=== PATIENT | male | born 1955 | race Caucasian/White ===

== ENCOUNTER → 2017-03-28 | Outpatient (CLI) | payer MEDICARE, OTHER | LOC: CT 13:00 | DX: F17.210 Nicotine dependence, cigarettes, uncomplicated (principal) | CPT/HCPCS: G0297 ==

== ENCOUNTER → 2020-10-13 | Outpatient (CLI) | payer MEDICARE, OTHER ==
[~2020-10-13] MED LIST: ASPIRIN EC325 MG PO; COMBIVENT0.074 GM/I INH; COZAAR25 MG PO; CYCLOBENZAPRINE5 MG PO; DILTIAZEM 24HR240 MG PO; DIOVAN80 MG PO; FLEXERIL 10 MG10 MG PO; HYDROCODON-ACE1 EAC6 PO; K-DUR TAB 20 M20 MEQ PO; LASIX20 MG PO; LEVEMIR100 UNIT/1 SC; LIPITOR80 MG PO; METFORMIN HCL1000 MG PO; METOPROLOL TART25 MG PO; MOBIC15 MG PO; NASONEX SPRAY 117 GM; NEURONTIN 300300 MG PO; NICOTINE PATCH1 EAC1 TP; NITROSTAT 0.40.4 MG SL; NOVOLOG 10100 UNITS1 SC; OZEMPIC0.25 MG/0. SC; PAXIL40 MG PO; PREDNISONE20 MG PO; PRILOSEC OTC20 MG PO; SINGULAIR10 MG PO; SYMBICORT 16010.2 GM INH; SYNJARDY XR PO; TRESIBA100 UNIT/1 SC; TYLENOL 325MG325 MG PO; VENTOLIN HFA 66.7 GM INH; VITAMIN B-121000 MC3 PO; VITAMIN D 11000 UNIT PO; VITAMIN D1000 UNIT PO; VITAMIN D21250 MCG PO; XANAX1 MG PO
[2020-10-13 16:32] LABS: HEMOGLOBIN 17.5 gm/dl (14.0-17.5); RED BLOOD COUNT 5.6 M/UL (4.20-5.50)
[2020-10-13 16:50] LABS: BUN/CREATININE RATIO 23 (0-10)
[2020-10-15 09:15] LABS: CREATININE, URINE 90.3 mg/dL (Not Estab.)
== END ==
LOC: LAB 15:27
PROVIDERS: Family Medicine
DX: M25.512 Pain in left shoulder (principal); M54.5 Low back pain; E11.9 Type 2 diabetes mellitus without complications; E55.9 Vitamin D deficiency, unspecified; E78.5 Hyperlipidemia, unspecified; M51.36 Other intervertebral disc degeneration, lumbar region; M43.16 Spondylolisthesis, lumbar region; M48.061 Spinal stenosis, lumbar region without neurogenic claudication
CPT/HCPCS: 72110; 73030; 80053; 80061; 82043; 82570; 85027

== ENCOUNTER → 2021-02-24 | Outpatient (CLI) | payer MEDICARE, OTHER | LOC: EXRD 14:53 | DX: M79.662 Pain in left lower leg (principal); M79.661 Pain in right lower leg | CPT/HCPCS: 93922; 93925 ==

== ENCOUNTER → 2021-05-30 | Outpatient (CLI) | payer MEDICARE, OTHER | LOC: RAD 15:56 | DX: M25.561 Pain in right knee (principal) | CPT/HCPCS: 73564 ==

== ENCOUNTER → 2021-07-13 | Outpatient (CLI) | payer MEDICARE, OTHER ==
[~2021-07-13] MED LIST changes: +BENADRYL ALLERG25 MG PO; +PREDNISONE 20 M20 MG GT; +VIBRAMYCIN100 MG PO
[2021-07-13 16:19] LABS: HEMOGLOBIN 16.1 gm/dl (14.0-17.5); RED BLOOD COUNT 5.04 M/UL (4.20-5.50); WHITE BLOOD COUNT 6.9 K/UL (4.5-11.0)
[2021-07-13 16:41] LABS: BUN/CREATININE RATIO 19 (0-10)
== END ==
LOC: LAB 15:46
PROVIDERS: Family Medicine
DX: E78.2 Mixed hyperlipidemia (principal); E11.9 Type 2 diabetes mellitus without complications; I10 Essential (primary) hypertension
CPT/HCPCS: 36415; 80053; 80061; 83036; 83735; 85027

== ENCOUNTER → 2021-07-28 | Outpatient (CLI) | payer MEDICARE, OTHER ==
[~2021-07-28] MED LIST changes: -BENADRYL ALLERG25 MG PO; -PREDNISONE 20 M20 MG GT; -VIBRAMYCIN100 MG PO
== END ==
LOC: US 13:16
DX: M79.89 Other specified soft tissue disorders (principal); R60.0 Localized edema
CPT/HCPCS: 93971

== ENCOUNTER 2021-08-02 18:07 | Emergency (ER) | payer MEDICARE, OTHER ==
[2021-08-02 19:40] LABS: HEMOGLOBIN 15.7 gm/dl (14.0-17.5); RED BLOOD COUNT 4.97 M/UL (4.20-5.50); WHITE BLOOD COUNT 9.8 K/UL (4.5-11.0)
[2021-08-02 19:58] LABS: BUN/CREATININE RATIO 14 (0-10)
[2021-08-02] MEDS ORDERED: PREDNISONE 20 M20 MG GT (22:34)
[2021-08-02] MEDS ORDERED: BENADRYL ALLERG25 MG PO (22:34)
[2021-08-02] MEDS ORDERED: VIBRAMYCIN100 MG PO (22:34)
== END 2021-08-02 23:10 | disposition home or self-care (01) ==
LOC: ER1 18:07
PROVIDERS: Family Medicine
DX: R21 Rash and other nonspecific skin eruption (principal); L03.115 Cellulitis of right lower limb; E11.9 Type 2 diabetes mellitus without complications
CPT/HCPCS: 71046; 80053; 82550; 82553; 83605; 83735; 83880; 84484; 85025; 85379; 85652; 86140; 87040; 93971; 96374; 99284; J2930

== ENCOUNTER → 2021-09-12 | Outpatient (CLI) | payer MEDICARE, OTHER ==
[~2021-09-12] MED LIST changes: +BENADRYL ALLERG25 MG PO; +PREDNISONE 20 M20 MG GT; +VIBRAMYCIN100 MG PO
== END ==
LOC: KOH-I 14:00
DX: F17.200 Nicotine dependence, unspecified, uncomplicated (principal)
CPT/HCPCS: 71271

== ENCOUNTER → 2021-10-18 | Outpatient (CLI) | payer MEDICARE, OTHER ==
[2021-10-18 16:12] LABS: HEMOGLOBIN 15.5 gm/dl (14.0-17.5)
[2021-10-18 16:35] LABS: BUN/CREATININE RATIO 24 (0-10)
[2021-10-19 11:17] LABS: CREATININE, URINE 302.5 mg/dL (Not Estab.)
== END ==
LOC: LAB 15:26
PROVIDERS: Family Medicine
DX: Z12.5 Encounter for screening for malignant neoplasm of prostate (principal); E11.9 Type 2 diabetes mellitus without complications; E78.2 Mixed hyperlipidemia; R35.1 Nocturia; Z79.4 Long term (current) use of insulin; Z79.899 Other long term (current) drug therapy
CPT/HCPCS: 36415; 80053; 80061; 82043; 82570; 82607; 83735; 85027; G0103

== ENCOUNTER → 2022-01-06 | Outpatient (CLI) | payer MEDICARE, OTHER | LOC: MRI 10:59 | DX: H53.2 Diplopia (principal); H44.21 Degenerative myopia, right eye | CPT/HCPCS: 36415; 70544; 70553; 82565; 84520; A9577 ==